=== PATIENT | male | born 1990 | race Hispanic/Latino ===

== ENCOUNTER 2021-02-02 05:24 | Emergency (ER) | payer SELFPAY ==
[2021-02-02] MEDS ORDERED: Iopamidol 370 76% 100 ML VIAL IV ONE (05:25)
[2021-02-02] MEDS ORDERED: Ondansetron PF 4 MG/2 ML Vial ONE (05:39)
[2021-02-02 05:44] LABS: Bilirubin Negative (Negative); Blood, Urine Trace (Negative); Clarity Clear (Clear); Glucose, Urine (Dipstick) 500 mg/dL (Negative); Ketone, Urine > or equal to 80 mg/dL (Negative); Leukocyte Negative (Negative); Nitrite Negative (Negative); Protein, Urine (Dipstick) > or equal to 300 mg/dL (Neg-Trace); Urobilinogen 0.2 mg/dL (Less than 2)
[2021-02-02 06:01] LABS: RBC/HPF 0-3 HPF (0-3); Squamous Epithelial 0-3 HPF (0-3); WBC/HPF None Seen HPF (0-3)
[2021-02-02 06:28] LABS: Albumin 4.5 g/dL (3.5-5.0); Calcium 9.7 mg/dL (7.8-10.44); Potassium 4.1 mmol/L (3.5-5.1)
[2021-02-02] MEDS ORDERED: Pantoprazole 40 MG VIAL ONE (06:39)
[2021-02-02] MEDS ORDERED: Mag-Al Plus 1200 MG/1200 MG/120 MG/30 ML UDCUP ONE (06:39)
[2021-02-02] MEDS ORDERED: Sucralfate 1 GM TAB ONE (06:39)
[2021-02-02] MEDS ORDERED: Morphine 4 MG/ML VIAL ONE (06:39)
[2021-02-02] MEDS ORDERED: Lidocaine Viscous Sol 2% 15 ml UD Cup ONE (06:39)
[2021-02-02 07:07] LABS: #Basophils 0.1 thou/uL (0.0-0.2); #Eosinphils 0.1 thou/uL (0.0-0.7); #Lymphocytes 2.2 thou/uL (1.20-3.40); #Neutrophils 15.7 thou/uL (1.40-6.50); %Basophils 0.7 % (0.0-1.0); %Eosinophils 0.3 % (0.0-10.0); %Lymphocytes 11.3 % (21.0-51.0); %Monocytes 5.3 % (0.0-10.0); %Neutrophils 82.4 % (42.0-75.0); Bilirubin, Total 0.5 mg/dL (0.2-1.2); Hemoglobin 18.5 g/dL (14.0-18.0); Mean Corpuscular HGB CONC 39.7 g/dL (32.0-36.0); Mean Corpuscular Hemoglobin 34.9 pg (27.0-31.0); Mean Corpuscular Volume 87.9 fL (78.0-98.0); Mean Platelet Volume 10.2 fL (7.4-10.4); Platelet Count 240 thou/uL (130-400); RBC Distribution Width 11.3 % (11.5-14.5)
[2021-02-02 07:13] LABS: Globulin 11.2 g/dL (2.4-3.5); Protein, Total 15.7 g/dL (6.0-8.3)
[2021-02-02] MEDS ORDERED: Sodium Chloride 0.9% 1,000 ML BAG ONE (07:16)
[2021-02-02] MEDS ORDERED: Sodium Chloride 0.9% 100 ML BAG ONE (07:16)
[2021-02-02] MEDS ORDERED: Insulin Regular 300 UNITS/3 ML VIAL ONE (07:16)
[2021-02-02] MEDS ORDERED: Sodium Chloride 0.9% 1,000 ML ONE (08:21)
[2021-02-02 08:38] LABS: Base Excess-Venous -6.1 mmol/L (-2.0 to 3.0); Bicarbonate (HCO3v) 20.9 mmol/L (22.0-28.0); CO2 Tension (PvCO2) 45.2 mmHg (42.0-51.0); Calcium, Ionized 1.02 mmol/L (1.15-1.33); Chloride 103 mmol/L (98-107); Hemoglobin - Calc 17.6 g/dL (14.0-18.0); Potassium 4.2 mmol/L (3.5-5.1); Sodium 132 mmol/L (138-145); T. Carbon Dioxide 22.2 mmol/L (22.0-28.0); vO2 Saturation-calc 88.2 % (60.0-85.0)
== END 2021-02-02 08:56 | disposition short-term general hospital (02) ==
LOC: MADERS 05:24
DX: K85.90 Acute pancreatitis without necrosis or infection, unspecified (principal); E11.9 Type 2 diabetes mellitus without complications; R79.89 Other specified abnormal findings of blood chemistry
CPT/HCPCS: 36416; 74177; 80053; 81003; 81015; 82330; 82803; 83615; 83690; 85025; 87040; 93005; 96374; 96375; 36415-59; C9113; J1815; J2270; J2405; J3490; J7050; Q9967

== ENCOUNTER 2024-01-31 02:32 | Emergency (ER) | payer OTHER, SELFPAY ==
[2024-01-31] MEDS ORDERED: Mag-Al Plus 1200/1200/120 MG (30 mL) UDCUP ONE (03:01)
[2024-01-31] MEDS ORDERED: Lidocaine Viscous Sol 2% 15 ml UD Cup ONE (03:01)
[2024-01-31 03:15] LABS: Bilirubin Negative (Negative); Blood, Urine Negative (Negative); Clarity Clear (Clear); Glucose, Urine (Dipstick) >=1000 mg/dL (Negative); Ketone, Urine 80 mg/dL (Negative); Leukocyte Negative (Negative); Nitrite Negative (Negative); Protein, Urine (Dipstick) 100 mg/dL (Neg-Trace); Specific Gravity, Urine 1.025 (1.005-1.030); Urobilinogen 0.2 mg/dL (Less than 2)
[2024-01-31 03:20] LABS: CAUTI Indications for Culture Pelvic or flank pain; RBC/HPF 0-3 HPF (0-3); Squamous Epithelial 0-3 HPF (0-3); WBC/HPF None Seen HPF (0-3)
[2024-01-31 03:21] LABS: Urine Culture Reflex No No
[2024-01-31] MEDS ORDERED: Sucralfate 1 GM TAB ONE (03:41)
[2024-01-31] MEDS ORDERED: Pantoprazole 40 MG VIAL ONE (03:42)
[2024-01-31] MEDS ORDERED: Sodium Chloride 0.9% 1,000 ML ONE ×2 (03:42→06:32)
[2024-01-31 04:19] LABS: Albumin 4.3 g/dL (3.5-5.0); Calcium 9.7 mg/dL (7.8-10.44); Magnesium 1.7 mg/dL (1.6-2.6); Potassium 4.1 mmol/L (3.5-5.1)
[2024-01-31 04:32] LABS: Bilirubin, Total 1.3 mg/dL (0.2-1.2)
[2024-01-31 05:05] LABS: Hematocrit 43.4 % (42.0-52.0); Hemoglobin 15.9 g/dL (14.0-18.0); Lymphocytes 8 % (21-51); MDiff Complete? YES; Mean Corpuscular HGB CONC 36.6 g/dL (32.0-36.0); Mean Corpuscular Hemoglobin 33.5 pg (27.0-31.0); Mean Corpuscular Volume 91.4 fl (78.0-98.0); Mean Platelet Volume 8.8 fL (7.4-10.4); Monocytes 4 % (0-10); Neutrophil 88 % (42-75); Platelet Count 183 10x3/uL (130-400); RBC Distribution Width 12.4 % (11.5-14.5); Red Blood Cell (RBC) Count 4.75 mill/uL (4.70-6.10); White Blood Cell (WBC) Count 14.5 10x3/uL (4.8-10.8)
[2024-01-31 05:22] LABS: Globulin 7.1 g/dL (2.4-3.5)
[2024-01-31 05:32] LABS: Protein, Total 11.4 g/dL (6.0-8.3)
[2024-01-31] MEDS ORDERED: Ketorolac Tromethamine 30 MG (1 mL) VIAL ONE (06:32)
[2024-01-31 07:10] LABS: Acetaminophen Less than 10 mcg/mL (10.0-30.0)
[2024-01-31] MEDS ORDERED: Iopamidol 370 76% 100 ML VIAL ONE (09:00)
[2024-01-31] MEDS ORDERED: Morphine 4 MG/ML VIAL ONE (09:27)
[2024-01-31] MEDS ORDERED: Ondansetron PF 4 MG/2 ML Vial ONE (09:27)
[2024-01-31 10:01] LABS: Alcohol Less than 10.0 mg/dL (Less than 10)
[2024-01-31 10:02] LABS: Salicylate Less than 8.0 mg/dL (15.0-30.0)
== END 2024-01-31 10:15 | disposition short-term general hospital (02) ==
LOC: MADERS 02:32
DX: K85.90 Acute pancreatitis without necrosis or infection, unspecified (principal); E87.1 Hypo-osmolality and hyponatremia
CPT/HCPCS: 74177; 80053; 80307; 81001; 83690; 83735; 85025; 96361; 96374; 96375; C9113; J1885; J2270; J2405; J7050; Q9967